=== PATIENT | female | born 1960 | race Caucasian/White ===

== ENCOUNTER 2020-07-04 11:28 | Emergency (ER) | payer OTHER, SELFPAY ==
--- NOTE | ~2020-07-04 | XR_ITS ---
EXAMINATION: RIGHT HAND AND LEFT WRIST CLINICAL INFORMATION: Last within the right fourth distal digit with pain Left laceration rule out foreign body. COMPARISON: None TECHNIQUE: Three-view right hand and 3 view left hand FINDINGS: 3 views of the right hand do not demonstrate any evidence of acute fracture or dislocation. Joint spaces are maintained. There is some soft tissue swelling seen about the fourth middle phalanx about the dorsal medial aspect. No radiopaque foreign body is identified. There is also noted to be some mild soft tissue prominence about the fifth proximal phalanx. No gas in the soft tissues identified. 3 views of the left hand do not demonstrate any evidence of acute fracture or dislocation. No radiopaque foreign body identified. Joint spaces maintained. There is some mild spurring about the first carpal metacarpal joint. No gas appreciated within the soft tissues. XR/XR hand RT 2V IMPRESSION: No radiopaque foreign body identified in either the right hand or left wrist.
--- NOTE | ~2020-07-04 | XR_ITS ---
EXAMINATION: RIGHT HAND AND LEFT WRIST CLINICAL INFORMATION: Last within the right fourth distal digit with pain Left laceration rule out foreign body. COMPARISON: None TECHNIQUE: Three-view right hand and 3 view left hand FINDINGS: 3 views of the right hand do not demonstrate any evidence of acute fracture or dislocation. Joint spaces are maintained. There is some soft tissue swelling seen about the fourth middle phalanx about the dorsal medial aspect. No radiopaque foreign body is identified. There is also noted to be some mild soft tissue prominence about the fifth proximal phalanx. No gas in the soft tissues identified. 3 views of the left hand do not demonstrate any evidence of acute fracture or dislocation. No radiopaque foreign body identified. Joint spaces maintained. There is some mild spurring about the first carpal metacarpal joint. No gas appreciated within the soft tissues. XR/XR wrist LT 2V IMPRESSION: No radiopaque foreign body identified in either the right hand or left wrist.
[2020-07-04 11:37] VITALS: BP 146/68; PULSE 65; TEMP 37.2; O2SAT 99; BMI 29.1
[2020-07-04] MEDS: Lidocaine HCl 1 % MPF 5 ML VIAL SUBCUT (12:21)
[2020-07-04] MEDS: Diphth,Pertus(ACell),Tet Adult 0.5 ML SYRINGE IM (13:06)
--- NOTE | 2020-07-04 13:47 | ED.WOUNDLAC ---
HPI - Wound/Laceration General Chief Complaint: Wound/Laceration Stated Complaint: lac - [facility] Time Seen by Provider: 07/04/20 12:04 Source: patient Mode of arrival: ambulatory History of Present Illness HPI narrative: 59-year-old female with a past medical history of anxiety, hypertension presenting to the ED from [facility] for lacerations to left wrist, right 3rd and 4th digits S/P glass yard ornament shattering in hands while doing yard work [employer]. Unknown FB. Reports pain to right 4th and 5th digits with mild swelling. Tetanus unknown. Denies injury to other areas. Onset (ago): hour(s) Related Data Allergies Allergy/AdvReac Type Severity Reaction Status Date / Time No Known Allergies Allergy Verified 07/04/20 11:42 Review of Systems Review of Systems: Constitutional: No Fever, No Chills Musculoskeletal: + joint pain, No Myalgias, + Joint Swelling Skin: + lacerations Neuro: No Weakness, No Numbness, No Paresthesias Yes all other systems are reviewed and are negative PMFSH Past Medical History Attestation statement: The following information was validated with the patient. Medical History (Updated 07/04/20 @ 13:51 by KENA King) Anxiety Hypertension Social History Social History Advance Directives: No Advance Directives Information Provided: No Physical Exam Vital Signs: Vital Signs: Last Vital Signs Temp 99.0 F 07/04/20 11:37 Pulse 65 07/04/20 11:37 BP 146/68 H 07/04/20 11:37 Pulse Ox 99 07/04/20 11:37 Body Mass Index 29.1 Const: General: cooperative, healthy appearing and comfortable Orientation/consciousness: patient oriented x3 Limitations: no limitations HENMT: Head: Yes normal to inspection Ears: hearing grossly normal bilaterally General nose exam: Normal external nose present Face and sinus: Yes normal facial exam Eyes: General: appearance normal, both eyes and all related structures EOM: EOMs intact bilaterally Neck: Neck: Yes normal visual inspection and Yes no meningeal signs Resp: Effort & Inspection: normal respiratory effort Cardio: Rate: regular rate Peripheral pulses: radial pulses present Skin: Other: 3 cm linear laceration noted to left volar wrist 1.5 cm linear laceration noted to right 3rd digit at PIP lateral aspect, and flap laceration noted to 3rd digit PIP volar aspect No appreciable foreign body. Right 5th and 4th MCPs with tenderness and mild swelling. Complete flexion right 5th digit limited secondary to pain. Finger to thumb opposition intact. NV intact Rashes: no rashes Neuro: General: patient oriented x3 and no meningeal signs Gait exam (Neuro): Normal gait present Extrem: General: Yes normal to inspection Procedures Laceration Laceration 1: Site: upper extremity (wrist) Side (If applicable): left Size (cm): 3 Description: linear Depth: simple, single layer Local Anesthetic: lidocaine 1% Amount of anesthesia used (mL): 3 Pre-repair: wound explored and irrigated extensively Skin layer closed with: nylon Size (cm): 5-0 Number of sutures: 5 Technique: simple, interrupted Laceration 2: Site: hand (Ring finger) Side (If applicable): right Size (cm): 1.5 Description: linear Depth: simple, single layer Local Anesthetic: lidocaine 1% Amount of anesthesia used (mL): 1 Pre-repair: wound explored and irrigated extensively Skin layer closed with: nylon Size (cm): 5-0 Number of sutures: 3 Technique: simple, interrupted Laceration 3: Site: hand (Middle finger) Side (If applicable): right Description: flap and clean Depth: simple, single layer Technique: other (Dermabond) MDM - Wound/Laceration MDM Narrative Medical decision making narrative: On exam VSS, NAD/well-appearing, physical exam as above. Will obtain x-rays to rule out foreign body/fracture or/dislocation and repair wounds and update tetanus Discharge Plan Discharge Clinical Impression: Laceration Patient Disposition: Home, Self-Care Instructions: Laceration (ED) Additional Instructions: Keep wounds dry and clean, avoid getting wet for the next 24 hours, after 24 hours you may get wet, but only pat dry, do not scrub You need to return to any emergency department, or urgent care in 7-10 days to have the stitches taken out Apply bacitracin or Neosporin at home After stitches are removed you may apply mederma which is an anti scar cream If area begins look infected, is red, there is pus drainage, streaking, or you fever return to the ED Referrals: ED Physician,Generic [Physician] - 1 week (Return to any emergency department, urgent care, or your primary care doctor in 7-10 days have her stitches taken out) Stand Alone Forms: Work/School Release Interventions: ED Discharge Assessment Last Done: 07/04/20 14:03 Discharge Date/Time: 07/04/20 14:04
== END 2020-07-04 14:04 | disposition home or self-care (01) ==
PROVIDERS: Emergency Provider Emergency Medicine; PCP Internal Medicine
DX: S61.512A Laceration without foreign body of left wrist, initial encounter (principal); S61.214A Laceration without foreign body of right ring finger without damage to nail, initial encounter; S61.212A Laceration without foreign body of right middle finger without damage to nail, initial encounter; W25.XXXA Contact with sharp glass, initial encounter; Y93.H2 Activity, gardening and landscaping; Y92.017 Garden or yard in single-family (private) house as the place of occurrence of the external cause; Y99.9 Unspecified external cause status
CPT/HCPCS: 12011; 12044; 73100; 73120; 90471; 90715; 99283; 99284